=== PATIENT | male | born 1980 ===

== ENCOUNTER 2016-04-18 17:57 | Emergency (ER) | payer BC ==
[2016-04-18 18:22] VITALS: BP 129/88
[2016-04-18] MEDS ORDERED: Cephalexin CAP* 500 MG PO ONE ×2 (18:37)
--- NOTE | 2016-04-18 18:43 | UC ---
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 no n/v/d no CP or SOB - History of Current Complaint Chief Complaint: UCRespiratory Stated Complaint: COLD SYMPTOMS Time Seen by Provider: 04/18/16 18:31 Hx Obtained From: Patient Onset/Duration: Gradual Onset, Lasting Days Severity: Moderate Pain Intensity: 4 Pain Scale Used: 0-10 Numeric Associated Signs & Symptoms: Positive: Fever - Allergies/Home Medications Allergies/Adverse Reactions: Allergies Allergy/AdvReac Type Severity Reaction Status Date / Time No Known Allergies Allergy Verified 04/18/16 18:23 Home Medications: Home Medications Anxiety Med* 04/18/16 [History] Depression Med* 04/18/16 [History] Ibuprofen TAB* [Advil TAB*] 400 mg PO PRN 04/18/16 [History] PMH/Surg Hx/FS Hx/Imm Hx Previously Healthy: Yes - Surgical History Surgical History: Yes Surgery Procedure, Year, and Place: APPENDECTOMY, BILAT KNEE CRUCIATE LIGAMENT SURGERIES - Family History Known Family History: Positive: Hypertension - Social History Alcohol Use: Occasionally Alcohol Amount: 3 BEERS/WEEK Substance Use Type: None Smoking Status (MU): Never Smoked Tobacco Review of Systems Constitutional: Fever, Chills, Fatigue Skin: Negative Eyes: Negative ENT: Sore Throat Respiratory: Negative Cardiovascular: Negative Gastrointestinal: Negative Genitourinary: Negative Motor: Negative Neurovascular: Negative Musculoskeletal: Myalgia Neurological: Headache Psychological: Negative All Other Systems Reviewed And Are Negative: Yes Physical Exam Triage Information Reviewed: Yes Appearance: Well-Appearing, No Pain Distress, Well-Nourished Vital Signs: Initial Vital Signs Temp 99.1 F 04/18/16 18:18 Pulse 83 04/18/16 18:18 Resp 16 04/18/16 18:18 BP 129/88 04/18/16 18:18 Pulse Ox 98 04/18/16 18:18 Vital Signs Reviewed: Yes Eyes: Positive: Conjunctiva Clear ENT: Positive: Hearing grossly normal, Pharyngeal erythema, TMs normal. Negative: Nasal congestion, Nasal drainage, Trismus Dental: Negative: Dental Fracture @, Abscess @ Neck: Positive: Supple, Nontender, Enlarged Nodes @ - ant cervical Respiratory: Positive: Lungs clear, Normal breath sounds, No respiratory distress, No accessory muscle use Cardiovascular: Positive: RRR, No Murmur Musculoskeletal: Positive: Strength Intact, ROM Intact, No Edema Neurological Exam: Normal Neurological: Positive: Alert Psychological Exam: Normal Skin Exam: Normal Throat Pain/Nasal Course/Dx - Differential Dx/Diagnosis Provider Diagnoses: acute pharyngitis Discharge - Discharge Plan Condition: Stable Disposition: HOME Prescriptions: Cephalexin CAP* [Keflex CAP*] 500 mg PO BID #18 cap Patient Education Materials: Pharyngitis (ED) Additional Instructions: rest fluids tylenol or advil if needed for pain recheck in 2-4 days if not better
[2016-04-18] MEDS ORDERED: Cephalexin CAP* 250 MG PO ONE (18:50)
== END 2016-04-18 19:09 | disposition home or self-care (01) ==
LOC: UCEAST 17:57
DX: J02.9 Acute pharyngitis, unspecified (principal); R53.83 Other fatigue; R51 Headache; M79.1 Myalgia; F10.99 Alcohol use, unspecified with unspecified alcohol-induced disorder
CPT/HCPCS: 99202; A9270-GY; G0463

== ENCOUNTER 2017-01-05 20:29 | Emergency (ER) | payer BC ==
[2017-01-05 20:39] VITALS: BP 125/81
--- NOTE | 2017-01-05 21:17 | UC ---
FLU HPI - HPI Summary HPI Summary: 36 year old male with recent travel from [place] has had sore throat with painful swallowing x 2-3 days. + muscle aches/ body aches, fatigue. no chills , + fever intermittently. no N/V/D. no headache, ear pain. ? sinus congestion. - History of Current Complaint Chief Complaint: UCRespiratory Stated Complaint: THROAT PAIN Time Seen by Provider: 01/05/17 20:49 Hx Obtained From: Patient Onset/Duration: Sudden Onset, Lasting Days Severity Currently: Moderate Severity Initially: Moderate Associated Signs & Symptoms: Positive: F/C, Myalgia, Sore Throat - Allergy/Home Medications Allergies/Adverse Reactions: Allergies Allergy/AdvReac Type Severity Reaction Status Date / Time No Known Allergies Allergy Verified 01/05/17 20:40 Home Medications: Home Medications Acetaminophen [Mapap] 500 mg PO ONCE PRN 01/05/17 [History Confirmed 01/05/17] PMH/Surg Hx/FS Hx/Imm Hx Previously Healthy: Yes - Surgical History Surgical History: Yes Surgery Procedure, Year, and Place: APPENDECTOMY, BILAT KNEE CRUCIATE LIGAMENT SURGERIES - Family History Known Family History: Positive: Hypertension - Social History Alcohol Use: Occasionally Alcohol Amount: 3 BEERS/WEEK Substance Use Type: Marijuana Smoking Status (MU): Never Smoked Tobacco Review of Systems Constitutional: Fatigue ENT: Sore Throat Musculoskeletal: Myalgia Is Patient Immunocompromised?: No All Other Systems Reviewed And Are Negative: Yes Physical Exam Triage Information Reviewed: Yes Appearance: Well-Appearing, No Pain Distress, Well-Nourished Vital Signs: Initial Vital Signs Temp 98.7 F 01/05/17 20:35 Pulse 93 01/05/17 20:35 Resp 16 01/05/17 20:35 BP 125/81 01/05/17 20:35 Pulse Ox 98 01/05/17 20:35 Vital Signs Reviewed: Yes Eyes: Positive: Conjunctiva Clear ENT: Positive: Pharyngeal erythema - minimal, TMs normal Neck: Positive: Supple, Nontender, No Lymphadenopathy Respiratory: Positive: Chest non-tender, No respiratory distress Neurological Exam: Normal Psychological Exam: Normal Skin Exam: Normal Flu Course/Dx - Course Course Of Treatment: pharygitis, strep negative. conservative treatments - Differential Dx/Diagnosis Differential Diagnosis/HQI/PQRI: Bronchitis, Broncholiolitis Provider Diagnoses: pharyngitis Discharge - Discharge Plan Condition: Good Disposition: HOME Patient Education Materials: Pharyngitis (ED) Referrals: [facility] [Outside] (call to make appointment for testing ) Additional Instructions[facility]: [phone] - Rapid strep negative - Motrin/ tylenol as needed for pain - return with increased fever, chills or new symptoms. - Increase fluid intake
== END 2017-01-05 21:30 | disposition home or self-care (01) ==
LOC: UCEAST 20:29
DX: J02.9 Acute pharyngitis, unspecified (principal); R53.83 Other fatigue
CPT/HCPCS: 87651; 99211; G0463

== ENCOUNTER 2017-01-13 19:19 | Emergency (ER) | payer BC ==
[2017-01-13 19:31] VITALS: BP 127/78
[2017-01-13] MEDS ORDERED: Meclizine TAB* 12.5 MG PO ONE (20:52)
--- NOTE | 2017-01-13 21:21 | UC ---
Andrea Rizvi Nikita, scribed for Zeyad Hu MD on 01/13/17 at 2021 . General HPI - HPI Summary HPI Summary: This patient is a 36 year old M presenting to [facility] with multiple symptoms since 01/05/17. The patient rates the pain 0/10 in severity. Symptoms aggravated from being tired (symptoms mostly occur at night). Symptoms alleviated by nothing ( pt took cold medicine to no relief). Patient reports outer ear pain, dizziness ( off balance, comes in waves), muscle aches, fatigue, upset stomach, nausea, and fever. Patient denies sore throat, appetite changes, urinary symptoms, dysuria, diarrhea, constipation, and unusual nasal discharge. - History of Current Complaint Chief Complaint: UCRespiratory Stated Complaint: DIZZY,FATIGUE,FEVER Time Seen by Provider: 01/13/17 20:05 Hx Obtained From: Patient Onset/Duration: Sudden Onset, Lasting Weeks - since 01/05/17, Still Present Timing: Intermittent Episodes Lasting: - usually occurs at night Current Severity: None Pain Intensity: 0 Aggravating: from being tired (usually at night) Alleviating: pt took cold medicine to no relief Associated Signs & Symptoms: Positive: Other - Patient reports outer ear pain, dizziness (off balance, comes in waves), muscle aches, fatigue, upset stomach, nausea, and fever. Patient denies sore throat, appetite changes, urinary symptoms, dysuria, diarrhea, constipation, and unusual nasal discharge. - Allergy/Home Medications Allergies/Adverse Reactions: Allergies Allergy/AdvReac Type Severity Reaction Status Date / Time No Known Allergies Allergy Verified 01/13/17 19:31 Home Medications: Home Medications Otc Cough Pills* 01/13/17 [History] PMH/Surg Hx/FS Hx/Imm Hx Endocrine History: Other Other Endocrine History: No DM Cardiovascular History: Other Other Cardiovascular History: arrhythmia - Surgical History Surgical History: Yes Surgery Procedure, Year, and Place: APPENDECTOMY, BILAT KNEE CRUCIATE LIGAMENT SURGERIES - Family History Known Family History: Positive: Cardiac Disease, Hypertension - Social History Alcohol Use: Occasionally Alcohol Amount: 3 BEERS/WEEK Substance Use Type: Marijuana Smoking Status (MU): Never Smoked Tobacco Review of Systems Constitutional: Fever, Fatigue ENT: Ear Ache - outer ear pain, Other - denies sore throat, unusual nasal discharge Gastrointestinal: Nausea, Other - upset stomach; denies appetite changes, diarrhea, constipation Genitourinary: Negative Musculoskeletal: Other: - muscle aches Neurological: Other - dizziness (off balance, comes in waves) All Other Systems Reviewed And Are Negative: Yes Physical Exam Triage Information Reviewed: Yes Appearance: Well-Appearing, No Pain Distress Vital Signs: Initial Vital Signs Temp 98.4 F 01/13/17 19:28 Pulse 77 01/13/17 19:28 Resp 16 01/13/17 19:28 BP 127/78 01/13/17 19:28 Pulse Ox 99 01/13/17 19:28 Vital Signs Reviewed: Yes Eye Exam: Normal ENT: Positive: Other - posterior pharynx is erythematous, Anterior cervical adenopathy Neck: Positive: Supple, Nontender Respiratory: Positive: Lungs clear, Normal breath sounds Cardiovascular: Positive: RRR Abdomen Description: Positive: Nontender, Soft Bowel Sounds: Positive: Present Musculoskeletal Exam: Normal Musculoskeletal: Positive: Strength Intact, ROM Intact Neurological Exam: Normal - normal, sensory/motor intact, A&O x3 Neurological: Positive: Alert Psychological Exam: Other - affect/mood appropriate Skin Exam: Other - warm, color reflects adequate perfusion, dry Course/Dx - Course Course Of Treatment: This patient is a 36 year old M presenting to [facility] with a chief complaint of cold-like symptoms since 01/05/17. The patient rates the pain 0/10 in severity. Symptoms aggravated from being tired (symptoms mostly occur at night). Symptoms alleviated by nothing (pt took cold medicine to no relief). Patient reports outer ear pain, dizziness (off balance, comes in waves) , muscle aches, fatigue, upset stomach, nausea, and fever. Patient denies sore throat, appetite changes, urinary symptoms, dysuria, diarrhea, constipation, and unusual nasal discharge. Medications reviewed. In the course, pt was given antivert. Pt will be discharged. Pt is agreeable with this plan. WITH RECENT TRAVEL TO [place], PATIENT HAS CONCERN OF DENGUE. ALSO HAS BEEN OUTDOORS A LOT LOCALLY SO, LYME IS A POSSIBLITY. CBC,CMP,TSH,LYME LABS DRAWN AND PENDING. THE PATIENT HAD EAR PAIN AND VERTIGO WITH NAUSEA, WILL RX AUGMENTIN, MECLIZINE AND ZOFRAN. PATIENT IS PLANNING ON ESTABLISHING A PMD AND FOLLOWING UP WITH THEM. WILL RETURN IF WORSE. - Differential Dx - Multi-Symptom Provider Diagnoses: VERTIGO/DIZZINESS/FATIGUE Discharge - Discharge Plan Condition: Stable Disposition: HOME Prescriptions: Amoxicillin/Clavulanate TAB* [Augmentin TAB 875*] 875 mg PO BID #20 tab Meclizine HCl [Meclizine 25] 25 mg PO Q6H PRN #20 tab PRN Reason: Dizziness Ondansetron ODT TAB* [Zofran 4 MG Odt TAB*] 4 mg PO Q6H PRN #10 tab.odt PRN Reason: Nausea Patient Education Materials: Vertigo (ED), Dizziness (ED), Fatigue (ED) Referrals: [facility] [Provider Group] [facility] [place] [place] [facility] [Outside] No Primary Care Phys,[facility] [Primary Care Provider] - Additional Instructions: FOLLOW UP WITH YOUR DOCTOR. GET RECHECKED FOR ANY WORSENING OF YOUR CONDITION OR QUESTIONS OR CONCERNS. The documentation as recorded by the Andrea melo Nikita accurately reflects the service I personally performed and the decisions made by me, Zeyad Hu MD.
[2017-01-14 11:23] LABS: Hematocrit 48 % (42-52); Hemoglobin 16.2 g/dl (14.0-18.0); Mean Corpuscular HGB Conc 34 g/dl (31-36); Mean Corpuscular Hemoglobin 31 pg (27-31); Mean Corpuscular Volume 91 fL (80-94); Mean Platelet Volume 9 um3 (7.4-10.4); Red Blood Count 5.28 10^6/ul (4.0-5.4); Red Cell Distribution Width 13 % (10.5-15); White Blood Count 6.5 10^3/ul (3.5-10.8)
[2017-01-14 11:34] LABS: Albumin 4.4 g/dL (3.2-5.2); BUN/Creatinine Ratio 17.6 (8-20); Calcium 9.5 mg/dL (8.6-10.3); EGFR African American 121.2 (>60); EGFR Non-African American 94.3 (>60); Globulin 3.3 g/dL (2-4); Total Bilirubin 0.4 mg/dL (0.2-1.0); Total Protein 7.7 g/dL (6.4-8.9)
[2017-01-14 11:49] LABS: TSH (Thyroid Stimulating Horm) 2.54 mcIU/mL (0.34-5.60)
== END 2017-01-13 21:20 | disposition home or self-care (01) ==
LOC: UCEAST 19:19
DX: R42 Dizziness and giddiness (principal); R53.83 Other fatigue; H92.09 Otalgia, unspecified ear; M79.1 Myalgia; R10.9 Unspecified abdominal pain; R11.0 Nausea; R50.9 Fever, unspecified; I49.9 Cardiac arrhythmia, unspecified
CPT/HCPCS: 36415; 80053; 84443; 85025; 86618; 99212; A9270-GY; G0463